=== PATIENT | male | born 1955 | race Caucasian/White ===

== ENCOUNTER → 2018-10-25 | Outpatient (CLI) | payer MEDICARE, BC | LOC: MHCPAIN 10:42 | DX: G89.29 Other chronic pain (principal); M54.12 Radiculopathy, cervical region; M47.812 Spondylosis without myelopathy or radiculopathy, cervical region; R51 Headache; M54.81 Occipital neuralgia | CPT/HCPCS: G0463 ==

== ENCOUNTER → 2018-11-09 | Outpatient (CLI) | payer MEDICARE, BC | LOC: MHCPAIN 08:42 | DX: M47.812 Spondylosis without myelopathy or radiculopathy, cervical region (principal) | CPT/HCPCS: J1100; Q9967 ==

== ENCOUNTER → 2018-11-13 | Outpatient (CLI) | payer MEDICARE, BC | LOC: MHCPAIN 10:38 | DX: M47.812 Spondylosis without myelopathy or radiculopathy, cervical region (principal); M54.12 Radiculopathy, cervical region | CPT/HCPCS: J1100; Q9967 ==